=== PATIENT | male | born 1975 | race African-American/Black ===

== ENCOUNTER 2018-12-21 10:18 | Emergency (ER) | payer MEDICAID ==
[~2018-12-21] VITALS: Ht 182.9 cm; Wt 75.0 kg
[2018-12-21 10:23] VITALS: Ht 182.9 cm; Wt 75.0 kg
[2018-12-21 11:09] LABS: BASOPHILS 0.2 % (0-2); EOSINOPHILS 1.4 % (0-7); HEMATOCRIT 45.6 % (42.0-54.0); HEMOGLOBIN 15.8 g/dL (13.5-17.5); IMMATURE GRANULOCYTES 0.2 % (0-5); LYMPHOCYTES 29.1 % (15-50); MCH 33.3 pg (26.0-34.0); MCHC 34.6 g/dL (31.0-37.0); MEAN PLATELET VOLUME 9.1 fL (7.4-10.4); MONOCYTES 6.1 % (2-11); PLATELET COUNT 260 10x3/uL (130-400); RBC 4.75 10x6/uL (4.20-6.10); RDW 12.5 % (11.5-14.5); WBC 10.4 10x3/uL (4.8-10.8)
[2018-12-21 11:11] LABS: APPEARANCE CLEAR (CLEAR); COLOR YELLOW (YELLOW); GLUCOSE NEGATIVE (NEGATIVE); KETONE SMALL mg/dL (NEGATIVE); NITRITE NEGATIVE (NEGATIVE); PROTEIN NEGATIVE (NEGATIVE); SPECIFIC GRAVITY 1.015 (1.005-1.020)
[2018-12-21 11:12] LABS: BILIRUBIN NEGATIVE (NEGATIVE); UROBILINOGEN NORMAL (NORMAL)
[2018-12-21 11:21] LABS: ALBUMIN 4.4 g/dL (3.4-5.0); ALKALINE PHOSPHATASE 80 U/L (46-116); ALT (SGPT) 21 U/L (10-68); BILIRUBIN - TOTAL 1.01 mg/dL (0.2-1.3); CALC OSMOLALITY 276 mosm/kg (275-300); CALCIUM 9.3 mg/dL (8.5-10.1); CARBON DIOXIDE 26.2 mmol/L (21.0-32.0); CHLORIDE - SERUM 103 mmol/L (98-107); CREATININE - SERUM 1.1 mg/dL (0.6-1.3); GLUCOSE 89 mg/dL (74-106); POTASSIUM - SERUM 3.9 mmol/L (3.5-5.1); PROTEIN - SERUM 8.3 g/dL (6.4-8.2); SODIUM 139 mmol/L (136-145); UREA NITROGEN 13 mg/dL (7-18); eGFR NON AFRICAN AMERICAN 78 mL/min (90-120)
[2018-12-21 11:25] LABS: AMYLASE - SERUM 135 U/L (25-115); LIPASE 152 U/L (73-393); TROPONIN-I < 0.017 ng/mL (0.000-0.060)
[2018-12-21] MEDS ORDERED: ACETAMINOPHEN500 M1 PO (12:53)
[2018-12-21] MEDS ORDERED: IBUPROFEN800 MG PO (12:53)
[2018-12-21] MEDS ORDERED: CYCLOBENZAPRINE10 MG PO (12:53)
[2018-12-21 13:08] VITALS: BP 123/74
== END 2018-12-21 13:08 | disposition home or self-care (01) ==
LOC: D.ER 10:18
PROVIDERS: Family Medicine
DX: S39.012A Strain of muscle, fascia and tendon of lower back, initial encounter (principal); X50.0XXA Overexertion from strenuous movement or load, initial encounter; F17.210 Nicotine dependence, cigarettes, uncomplicated